=== PATIENT | female | born 1965 | race Hispanic/Latino ===

== ENCOUNTER 2018-11-09 23:20 | Emergency (ER) | payer MEDICAID, OTHER ==
[2018-11-09] MEDS ORDERED: PREDNISONE 20 MG TABLET ONE (23:38)
[2018-11-09] MEDS ORDERED: DiphenhydrAMINE HCL 50 MG/ML VIAL ONE (23:38)
== END 2018-11-09 23:50 | disposition home or self-care (01) ==
LOC: EDH 23:20
DX: L24.9 Irritant contact dermatitis, unspecified cause (principal)
CPT/HCPCS: 96372; 99283; J1200